=== PATIENT | male | born 1970 | race Two or more races ===

== ENCOUNTER 2023-07-02 20:21 | Inpatient (IN) | payer OTHER ==
[~2023-07-02] VITALS: Ht 170.2 cm; Wt 106.6 kg
[~2023-07-02 20:21] MED LIST: AVAPRO300 MG PO; DOXAZOSIN MESYLA2 MG PO; METFORMIN HCL500 M2 PO; MIRTAZAPINE15 M1 PO; TOPROL XL100 M1 PO; ZOCOR20 MG PO
[2023-07-02] MEDS ORDERED: 0.9 % SODIUM CHLORIDE 1,000 ML IV SCH (22:15)
[2023-07-03] MEDS ORDERED: PIPERACILLIN/TAZOBACTAM SODIUM 3.375 GM in 0.9 % SODIUM CHLORIDE 100 ML IV SCH
[2023-07-03] MEDS ORDERED: IPRATROPIUM BROMIDE 0.5 MG/2.5 ML AMPUL.NEB IH SCH
[2023-07-03] MEDS ORDERED: ACETAMINOPHEN 500 MG GEL..CAP PO SCH (02:00)
[2023-07-03] MEDS ORDERED: GABAPENTIN 300 MG CAPSULE PO SCH (09:00)
[2023-07-03] MEDS ORDERED: ENOXAPARIN SODIUM 40 MG/0.4 ML SYRINGE SUBCUTANEO SCH (09:00)
[2023-07-03] MEDS ORDERED: PANTOPRAZOLE SODIUM 40 MG/VIAL VIAL IV SCH (09:00)
[2023-07-03] MEDS ORDERED: PHENOL 177 ML BOTTLE MM SCH (09:00)
[2023-07-03 10:00] LABS: HEMATOCRIT 40.3 % (39.0-48.0); HEMOGLOBIN 13.5 g/dL (13-16.00); MEAN CELL VOLUME 87.5 fL (80.0-100.00); MEAN CORPUSCULAR HEMOGLOBIN 29.2 pg (27.00-32.0); MEAN CORPUSCULAR HGB CONC 33.4 g/dl (32.0-36.0); PLATELET COUNT 275 K/uL (150-450); RED BLOOD COUNT 4.61 M/uL (4.00-6.00); RED CELL DISTRIBUTION WIDTH 13.1 % (11.5-14.5)
[2023-07-03 10:17] LABS: ALBUMIN 2.8 gm/dL (3.4-5.0); BILIRUBIN TOTAL 0.66 mg/dL (0.3-1.2); CALCIUM 8.6 mg/dL (8.5-10.1); CREATININE SERUM 1.06 mg/dL (0.70-1.30); GFR 73.95; GLOBULINA 3.6 G/DL (2.4-3.5); POTASSIUM 4.01 mEq/L (3.5-5.1); TOTAL PROTEIN 6.4 gm/dL (6.4-8.2)
[2023-07-03 10:36] LABS: INR 1.06; PARTIAL THROMBOPLASTIN TIME 29.9 SECONDS (22.0-34.0); PROTHROMBIN TIME 11.1 SECONDS (9.0-11.5)
[2023-07-03] MEDS ORDERED: INSULIN LISPRO 1,000 UNIT/10 ML UNITS SUBCUTANEO PRN (13:45)
[2023-07-03] MEDS ORDERED: DEXTROSE 50 % IN WATER 0.5 G/ML DISP.SYRIN IV PRN (13:45)
[2023-07-03] MEDS ORDERED: ENALAPRILAT DIHYDRATE 1.25 MG/ML VIAL IV PRN (13:45)
[2023-07-03 17:21] LABS: COL EPI 117 SECONDS (82-175)
[2023-07-03 17:30] LABS: PROSTATIC SPECIFIC ANTIGEN 0.494 NG/ML (0.010-4.00)
[2023-07-03 17:31] LABS: C-REACTIVE PROTEIN 5.98 MG/DL (0.00-0.29)
[2023-07-04 07:53] LABS: HEMATOCRIT 40.3 % (39.0-48.0); HEMOGLOBIN 13.8 g/dL (13-16.00); MEAN CELL VOLUME 88.6 fL (80.0-100.00); MEAN CORPUSCULAR HEMOGLOBIN 30.4 pg (27.00-32.0); MEAN CORPUSCULAR HGB CONC 34.3 g/dl (32.0-36.0); PLATELET COUNT 275 K/uL (150-450); RED BLOOD COUNT 4.55 M/uL (4.00-6.00); RED CELL DISTRIBUTION WIDTH 12.5 % (11.5-14.5)
[2023-07-04 08:27] LABS: ALBUMIN 2.8 gm/dL (3.4-5.0); BILIRUBIN TOTAL 0.46 mg/dL (0.3-1.2); CALCIUM 8.9 mg/dL (8.5-10.1); CREATININE SERUM 1.05 mg/dL (0.70-1.30); GFR 74.76; GLOBULINA 3.6 G/DL (2.4-3.5); PHOSPHOROUS 3.6 mg/dL (2.5-4.9); POTASSIUM 4.35 mEq/L (3.5-5.1); TOTAL PROTEIN 6.4 gm/dL (6.4-8.2)
[2023-07-04 08:28] LABS: C-REACTIVE PROTEIN 3.72 MG/DL (0.00-0.29)
[2023-07-04] MEDS ORDERED: HYDROCHLOROTHIAZIDE 25 MG TABLET PO SCH (09:00)
[2023-07-04] MEDS ORDERED: IRBESARTAN 300 MG TABLET PO SCH (09:00)
[2023-07-04] MEDS ORDERED: ALBUTEROL SULFATE 3 ML/2.5 MG AMPUL.NEB IH ONE (09:09)
[2023-07-04] MEDS ORDERED: BENZONATATE 200 MG CAPSULE PO STA (10:54)
[2023-07-04] MEDS ORDERED: ALBUTEROL SULFATE 3 ML/2.5 MG AMPUL.NEB IH STA (10:55)
[2023-07-04 14:27] LABS: ABG PO2 132.2 mmHg (80-100); ABG pCO2 33.2 mmHg (35-45)
[2023-07-04 14:28] LABS: BASE EXCESS -2.5 mmol/l; Tco2 22.1 mmol/l; allen test SATISFACTORY; o2 21 %; puncture site RADIAL RIGHT
[2023-07-04] MEDS ORDERED: SIMVASTATIN 20 MG TABLET PO SCH (17:00)
[2023-07-04] MEDS ORDERED: PIPERACILLIN/TAZOBACTAM SODIUM 3.375 GM VIAL IV ONE (20:00)
[2023-07-04] MEDS ORDERED: ONDANSETRON HCL 2 MG/ML VIAL IV PRN (20:30)
[2023-07-04] MEDS ORDERED: MORPHINE SULFATE 4 MG/ML CARTRIDGE IV PRN (20:30)
[2023-07-04] MEDS ORDERED: OxyCODONE HCL 5 MG TABLET (ROXICODONE) PO PRN (20:30)
[2023-07-04] MEDS ORDERED: DOXAZOSIN MESYLATE 2 MG TABLET PO SCH (21:00)
[2023-07-04] MEDS ORDERED: PATIENTS OWN MEDICATION (MEDICAMENTO EN PISO) PO SCH (21:00)
[2023-07-04] MEDS ORDERED: SIMETHICONE 125 MG CAPSULE PO SCH (21:00)
[2023-07-04] MEDS ORDERED: FAMOTIDINE/PF 20 MG/2 ML VIAL IV PUSH SCH (21:00)
[2023-07-04] MEDS ORDERED: LIDOCAINE HCL 1%/Epi 20ML VIAL IJ ONE (21:00)
[2023-07-04] MEDS ORDERED: METOPROLOL SUCCINATE 100 MG TAB.SR.24H PO SCH (21:00)
[2023-07-04] MEDS ORDERED: SUGAMMADEX SODIUM 200 MG/2 ML VIAL IV ONE (21:00)
[2023-07-04] MEDS ORDERED: POVIDONE-IODINE 118 ML BOTT TOP ONE (21:00)
[2023-07-04] MEDS ORDERED: BUPIVACAINE HCL 30 ML VIAL IJ ONE (21:00)
[2023-07-05] MEDS ORDERED: PIPERACILLIN/TAZOBACTAM SODIUM 3.375 GM VIAL IV ONE (00:16)
[2023-07-05] MEDS ORDERED: GABAPENTIN 300 MG CAPSULE PO SCH (01:00)
[2023-07-05] MEDS ORDERED: METOCLOPRAMIDE HCL 5 MG/ML VIAL IV SCH (01:00)
[2023-07-05] MEDS ORDERED: ACETAMINOPHEN 500 MG GEL..CAP PO SCH (02:00)
[2023-07-05 05:32] LABS: HEMATOCRIT 39.9 % (39.0-48.0); HEMOGLOBIN 13.7 g/dL (13-16.00); MEAN CELL VOLUME 89.1 fL (80.0-100.00); MEAN CORPUSCULAR HEMOGLOBIN 30.5 pg (27.00-32.0); MEAN CORPUSCULAR HGB CONC 34.2 g/dl (32.0-36.0); PLATELET COUNT 289 K/uL (150-450); RED BLOOD COUNT 4.47 M/uL (4.00-6.00); RED CELL DISTRIBUTION WIDTH 12.8 % (11.5-14.5)
[2023-07-05 05:55] LABS: ALBUMIN 3.1 gm/dL (3.4-5.0); CALCIUM 9.2 mg/dL (8.5-10.1); CREATININE SERUM 1.19 mg/dL (0.70-1.30); GFR 64.71; MAGNESIUM 1.9 mg/dL (1.8-2.4); PHOSPHOROUS 4.7 mg/dL (2.5-4.9); POTASSIUM 4.54 mEq/L (3.5-5.1)
[2023-07-05] MEDS ORDERED: HYOSCYAMINE SULFATE 0.125 MG TAB.SUBL SL SCH (09:00)
[2023-07-05] MEDS ORDERED: INSULIN LISPRO 1,000 UNIT/10 ML UNITS SUBCUTANEO PRN (09:00)
[2023-07-05] MEDS ORDERED: LACTULOSE 20 G/30 ML BLIST.PACK PO SCH (09:00)
[2023-07-05] MEDS ORDERED: DEXTROSE 50 % IN WATER 0.5 G/ML DISP.SYRIN IV PRN (09:00)
[2023-07-05] MEDS ORDERED: POLYETHYLENE GLYCOL 3350 17 GM BLIST.PACK PO SCH (17:00)
[2023-07-06] MEDS ORDERED: FLUCONAZOLE IN NACL,ISO-OSM 200 ML IV STA (14:54)
[2023-07-07 06:56] LABS: HEMATOCRIT 39.6 % (39.0-48.0); HEMOGLOBIN 13.3 g/dL (13-16.00); MEAN CELL VOLUME 89.4 fL (80.0-100.00); MEAN CORPUSCULAR HEMOGLOBIN 30.1 pg (27.00-32.0); MEAN CORPUSCULAR HGB CONC 33.6 g/dl (32.0-36.0); PLATELET COUNT 297 K/uL (150-450); RED BLOOD COUNT 4.43 M/uL (4.00-6.00); RED CELL DISTRIBUTION WIDTH 12.8 % (11.5-14.5)
[2023-07-07 07:57] LABS: CALCIUM 8.9 mg/dL (8.5-10.1); CREATININE SERUM 1.21 mg/dL (0.70-1.30); GFR 63.47; PHOSPHOROUS 3.5 mg/dL (2.5-4.9); POTASSIUM 4.59 mEq/L (3.5-5.1)
[2023-07-07] MEDS ORDERED: FLUCONAZOLE IN NACL,ISO-OSM 200 MG/100 ML PIGGYBAG IV SCH (17:00)
[2023-07-07 18:00] LABS: URINE BILIRRUBIN Negative (NEGATIVE); URINE BLOOD Negative; URINE COLOR Yellow; URINE GLUCOSE Negative (NEGATIVE); URINE LEUKOCYTE Negative; URINE NITRATE Negative; URINE PROTEIN Negative (NEGATIVE); URINE UROBILINOGEN 0.2 E.U./dl
[2023-07-07 18:04] LABS: URINE EPITHELIAL CELLS 2.4 uL (0.0-38.8); URINE WBC 1.8 uL (0.0-23.2)
[2023-07-07 18:50] LABS: URINE APPEARANCE Clear
[2023-07-07 18:58] LABS: URINE BACTERIA 0 uL (0.0-1933); URINE RBC 0.1 uL (0.0-20.8)
[2023-07-08] MEDS ORDERED: CHLORHEXIDINE GLUCONATE 120 ML BOTTLE TOP SCH (09:00)
[2023-07-08] MEDS ORDERED: FAMOtidine 20 MG TABLET PO SCH (21:00)
[2023-07-09] MEDS ORDERED: POLYETHYLENE GLYCOL 3350 17 GM BLIST.PACK PO STA (08:52)
[2023-07-09] MEDS ORDERED: KETOROLAC TROME10 MG (09:09)
[2023-07-09] MEDS ORDERED: SPIRONOLACTONE25 MG (09:10)
[2023-07-09] MEDS ORDERED: SODIUM CHLORIDE 0.45 % 1,000 ML IV SCH (11:15)
[2023-07-09] MEDS ORDERED: IPRATROPIUM BROMIDE 0.5 MG/2.5 ML AMPUL.NEB IH SCH (17:00)
[2023-07-09] MEDS ORDERED: POLYETHYLENE GLYCOL 3350 17 GM BLIST.PACK PO SCH (21:00)
[2023-07-10 06:00] LABS: ANION GAP 8 (10.0-20.0); BLOOD UREA NITROGEN 18 mg/dL (7-18); BUN CREA RATIO 15 (7.0-25.0); CALCIUM 9.7 mg/dL (8.5-10.1); CARBON DIOXIDE 31 mEq/L (21-32); CHLORIDE 108 mmol/L (98-107); CREATININE SERUM 1.17 mg/dL (0.70-1.30); GFR 65.99; GLUCOSE FASTING 96 mg/dL (65-100); OSMOLALITY SERUM 287 MOSM/KG (275-295); PHOSPHOROUS 3.6 mg/dL (2.5-4.9); SODIUM 143 mmol/L (136-145)
[2023-07-10 06:17] LABS: HEMATOCRIT 40.1 % (39.0-48.0); HEMOGLOBIN 13.5 g/dL (13-16.00); MEAN CELL VOLUME 87.5 fL (80.0-100.00); MEAN CORPUSCULAR HEMOGLOBIN 29.3 pg (27.00-32.0); MEAN CORPUSCULAR HGB CONC 33.6 g/dl (32.0-36.0); PLATELET COUNT 285 K/uL (150-450); RED BLOOD COUNT 4.59 M/uL (4.00-6.00); RED CELL DISTRIBUTION WIDTH 13.3 % (11.5-14.5)
[2023-07-10 07:22] LABS: C-REACTIVE PROTEIN < 0.29 MG/DL (0.00-0.29)
[2023-07-10] MEDS ORDERED: ZOCOR20 MG PO (12:59)
[2023-07-10] MEDS ORDERED: FAMOTIDINE20 MG PO (12:59)
[2023-07-10] MEDS ORDERED: DOXAZOSIN MESYLA2 MG PO (12:59)
[2023-07-10] MEDS ORDERED: INTESTINEX680 M2 PO (12:59)
[2023-07-10] MEDS ORDERED: AMOX-CLAV 875-1 EACH PO (12:59)
[2023-07-10] MEDS ORDERED: SPIRONOLACTONE25 MG PO (12:59)
[2023-07-10] MEDS ORDERED: AVAPRO300 MG PO (12:59)
[2023-07-10] MEDS ORDERED: FLUCONAZOLE100 MG PO (12:59)
[2023-07-10] MEDS ORDERED: METFORMIN HCL500 M2 PO (12:59)
[2023-07-10] MEDS ORDERED: TOPROL XL100 M1 PO (12:59)
== END 2023-07-10 15:26 | disposition home or self-care (01) | DRG 394 ==
LOC: SURG 20:21 → SURH 20:21 → SURG 07-03 10:51
PROVIDERS: Internal Medicine Geriatric Medicine; Internal Medicine Infectious Disease; Surgery; ADMIT Colon & Rectal Surgery; ATTEND Colon & Rectal Surgery
PROC: 3E0F7GC Introduction of Other Therapeutic Substance into Respiratory Tract, Via Natural or Artificial Opening (ICD-10-PCS; 2023-07-03)
PROC: 0WJM0ZZ Inspection of Male Perineum, Open Approach (ICD-10-PCS; 2023-07-04)
PROC: 0J9B00Z Drainage of Perineum Subcutaneous Tissue and Fascia with Drainage Device, Open Approach (ICD-10-PCS; principal; 2023-07-04 20:00)
DX: K61.39 Other ischiorectal abscess (principal); B37.89 Other sites of candidiasis; L03.315 Cellulitis of perineum; N50.89 Other specified disorders of the male genital organs; E11.9 Type 2 diabetes mellitus without complications; I10 Essential (primary) hypertension; G47.39 Other sleep apnea; R05.8 Other specified cough; Z79.4 Long term (current) use of insulin